=== PATIENT | male | born 1975 | race Caucasian/White ===

== ENCOUNTER → 2017-07-10 | Outpatient (CLI) | payer BC ==
[~2017-07-10] MED LIST: heartburn med
[2017-07-10 11:18] LABS: ALBUMIN 3.8 gm/dl (3.4-5.0); ALT/SGPT 81 U/L (12-78); AST/SGOT 39 U/L (15-37); BLOOD UREA NITROGEN 15 mg/dl (7-18); CALCIUM 8.7 mg/dl (8.5-10.1); CARBON DIOXIDE 26 mmol/L (21-32); CREATININE 1.12 mg/dl (0.60-1.40); GLUCOSE 111 mg/dl (70-99); HEMOGLOBIN A1C 5.3 % (4.5-5.6); POTASSIUM 3.9 mmol/L (3.5-5.1); SODIUM 136 mmol/L (136-145)
[2017-07-10 11:20] LABS: ALKALINE PHOSPHATASE 57 U/L (45-117); CHOLESTEROL 281 mg/dl (0-200); LDL CHOLESTEROL (DIRECT) 146 mg/dl; TOTAL PROTEIN 7.4 gm/dl (6.4-8.2)
== END | disposition home or self-care (01) ==
LOC: C.LABBC 08:19
PROVIDERS: ATTEND General Practice
DX: I10 Essential (primary) hypertension (principal); E78.2 Mixed hyperlipidemia; R73.01 Impaired fasting glucose; R79.89 Other specified abnormal findings of blood chemistry

== ENCOUNTER 2019-03-20 02:03 | Inpatient (IN) ==
[2019-03-20 02:43] LABS: Appearance Urine Clear (Clear); Bacteria Urine Automated Negative (Negative); Bilirubin Urine Negative (Negative); Blood Urine Trace (Negative); Color Urine Yellow; Glucose Urine UA Negative (Negative); Ketones Urine 2+ (Negative); Leukocyte Esterase Urine Negative (Negative); Nitrite Urine Negative (Negative); Protein Urine 2+ (Negative); RBC Urine Automated 0-4 /hpf (0-4); Specific Gravity Urine 1.027 (1.000-1.030); Urobilinogen Urine Negative (Negative); WBC Urine Automated 0 /hpf (0-5); pH Urine 5.5 (4.5-7.5)
[2019-03-20 02:55] LABS: Basophils # (auto) 0.07 K/uL (0-0.2); Basophils % (auto) 0.9 %; Eosinophils # (auto) 0.12 K/uL (0-0.5); Eosinophils % (auto) 1.5 %; Hemoglobin 16.1 g/dL (14.0-18.0); Immature Granulocytes # (auto) 0.02 K/uL (0.00-0.02); Immature Granulocytes % (auto) 0.3 %; Lymphocytes # (auto) 3.75 K/uL (1.2-3.4); Lymphocytes % (auto) 48.3 %; Mean Corpuscular Hemoglobin 32.3 pg (25-34); Mean Corpuscular Volume 92.2 fL (80-100); Mean Platelet Volume 9.8 fL (7.4-10.4); Monocytes # (auto) 0.54 K/uL (0.11-0.59); Neutrophils # (auto) 3.26 K/uL (1.4-6.5); Platelet Count 174 K/uL (130-400); RDW Coefficient of Variation 12.9 % (11.5-14.5); RDW Standard Deviation 43.2 fL (36.4-46.3); Red Blood Count 4.99 M/uL (4.7-6.1); White Blood Count 7.76 K/uL (4.8-10.8)
[2019-03-20 03:04] LABS: Amphetamines+Metham, Urine Neg (Neg); Barbiturates, Urine Neg (Neg); Benzodiazepine, Urine Pos (Neg); Cocaine, Urine Neg (Neg); MDMA (Ecstacy), Urine Neg (Neg); Methadone, Urine Neg (Neg); Opiate, Urine Neg (Neg); Phencyclidine, Urine Neg (Neg)
[2019-03-20 03:20] LABS: Albumin Level 3.9 gm/dl (3.4-5.0); BUN Creatinine Ratio 15.2 (10-20); Calcium 7.8 mg/dl (8.5-10.1); Creatinine Clr Calc Pharmacy 84.3 ml/min; Est GFR (African American) 91.8; Est GFR (Non-African American) 79.2
[2019-03-20 03:25] LABS: Bilirubin,Total 0.4 mg/dl (0.2-1); Thyroid Stimulating Hormone 0.453 uIu/ml (0.300-4.500); Total Protein 7.9 gm/dl (6.4-8.2)
[2019-03-20 03:43] LABS: Potassium 3.7 mmol/L (3.5-5.1)
[2019-03-20 03:52] LABS: Acetaminophen < 2 ug/ml (10-30); Salicylate 1.8 mg/dl (2.8-20)
--- NOTE | 2019-03-20 07:02 | Emergency Department Note ---
ED Visit Note 0700: sign out from Dr. Hudson. 43 yo M presenting w/ depression & SI, etoh intoxication. await psych eval 1600: Patient was evaluated by psychiatry. Patient is agreeable to voluntary admission for depression and suicidal ideation. Awaiting psychiatric placement. Case signed out to Dr. Hernandez. . : Alcohol intoxication Qualifiers: Complication of substance-induced condition: uncomplicated Qualified Code(s): F10.920 - Alcohol use, unspecified with intoxication, uncomplicated
--- NOTE | 2019-03-20 07:40 | Emergency Department Note ---
Entered by Yazmin Mauro acting as a scribe for ED Provider Note Name: Quincy Wan Age: 43 M Arrives Via: Police Informant: Patient CC: Depression HPI: The patient is a 43 year old male presenting to the Emergency Department complaining of worsening depression starting 1 day ago. The patient reports that he is normally depressed everyday but that it his depression has worsened over the past day. He states that he called his friend who is a state field service consultant [employer]AD CY[employer]CH[employer]IST and said that he wanted to hurt himself by cutting his wrists. He explains that he has tried to hurt himself before but that he has never been admitted to a psychiatric inpatient unit. He notes that he sometimes experiences anxiety related chest pain. He adds that he was drinking alcohol [employer] but doesnt remember how much alcohol he consumed. 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 He states that he currently isnt in any pain. He denies shortness of breath. ROS: See above HPI for pertinent positives & negatives. A total of 10 systems reviewed and were otherwise negative. Past Medical History: Depression, Anxiety Past Surgical History: No pertinent past surgical history. Family History: No pertinent family history. Social History: Never a smoker. Feels safe at home. Home Medications: "Heart burn medication" Allergies No known allergies. Physical: Vitals: BP: 143/99, Pulse: 131, Respirations: 16, Temperature: 98.1F, O2 Saturation: 94, Delivery: Room air. Exam: GENERAL: Patient is intoxicated appearing and in no acute distress. Slowed speech. EYES: No scleral icterus, unremarkable pupils. ENT: Mucous membranes moist, no nasal congestion. NECK: No masses appreciated, no meningismus, trachea is midline. RESPIRATORY: No dyspnea. Clear to auscultation and equal bilaterally. No wheeze, no rhonchi. CARDIOVASCULAR: Tachycardic rate and regular rhythm. No murmurs, rubs, gallops appreciated. GASTROINTESTINAL: Abdomen soft, non-tender, no peritonitis. Bowel sounds positive. No masses appreciated. BACK: No midline tenderness, no CVA tenderness EXTREMITIES: Normal motion all extremities, no cyanosis, no edema. NEUROLOGIC: Alert and oriented, no acute motor or sensory deficits, no focal weakness, cranial nerves grossly intact. PSYCH: Admits depression, anxiety and SI with plan. SKIN: No rash, no jaundice, no diaphoresis. ED Course: 0226: Prior Medical Record, Triage/Nursing Notes, Medications, Allergies reviewed by Me. The patient was evaluated in room A7, and a complete history and physical examination were performed. 729: I discussed the patient's case with Dr. Fabian CAZARES. He will evaluated the patient for further management. Vital Signs: reviewed and remarkable for tachycarida Labs: Reviewed and remarkable for normal psych labs other than elevated ETOH Blood pressure: Normal. No Referral necessary Disposition: Signed out to Dr Peralta Differentials: Differential diagnoses considered include mood disorder, infection, hypoglycemia, electrolyte abnormalities, cardiac sources, intracerebral event, toxicologic, neurologic, as well as others. Medical Decision Makin yr old male with worsening depression and suicidal ideation. He is very intoxicated and difficult to get story from. Medically clear other than intoxication. Signed out to Dr Peralta pending sobering and mental health evaluation. Impression: Suicidal ideation, Alcohol intoxication The scribe's documentation has been prepared under my direction and personally reviewed by me in its entirety. I confirm that the note above accurately reflects all work, treatment, procedures, and medical decision making performed by me. Florentin Hudson MD Impression & Plan Suicidal ideation, Alcohol intoxication Past Med/Surg History Medical History Anxiety Depression Surgical History No pertinent past surgical history Family History Other No pertinent family history Social History Feels Safe at Home: Yes Smoking Status: Never smoker Results & Data Vital Signs Vital Signs - 24 hr 03/20/19 02:08 03/20/19 04:10 Temperature 36.7 C Temperature Source Oral Sepsis Recent Fever Within 48 Hours No Sepsis Action Taken by Nursing No Action Required Pulse Rate 131 H Pulse Rate [Right Finger] 122 H Respiratory Rate 16 Respiratory Effort / Characteristics Non-Labored Spontaneous Respiratory Depth Normal Blood Pressure 143/99 H Blood Pressure [Left Arm] 104/66 Blood Pressure Mean 113 Blood Pressure Mean [Left Arm] 78 Pulse Oximetry 94 93 Oxygen Delivery Method Room Air Room Air Home Medications Current Medication List: was personally reviewed by me Laboratory Data Attestation: I reviewed the patient's lab results. Result diagrams: 03/20/19 02:44 03/20/19 02:44 Lab Results 03/20/19 03/20/19 03/20/19 Range/Units 02:15 02:15 02:44 WBC 7.76 (4.8-10.8) K/uL RBC 4.99 (4.7-6.1) M/uL Hgb 16.1 (14.0-18.0) g/dL Hct 46.0 (42-52) % MCV 92.2 (80-100) fL MCH 32.3 (25-34) pg MCHC 35.0 (32-36) g/dL RDW Std Deviation 43.2 (36.4-46.3) fL RDW Coeff of Alfonso 12.9 (11.5-14.5) % Plt Count 174 (130-400) K/uL MPV 9.8 (7.4-10.4) fL Immature Gran % (Auto) 0.3 % Neut % (Auto) 42.0 % Lymph % (Auto) 48.3 % [place] % (Auto) 7.0 % Eos % (Auto) 1.5 % Baso % (Auto) 0.9 % Immature Gran # (Auto) 0.02 (0.00-0.02) K/uL Neut # (Auto) 3.26 (1.4-6.5) K/uL Lymph # (Auto) 3.75 H (1.2-3.4) K/uL [place] # (Auto) 0.54 (0.11-0.59) K/uL Eos # (Auto) 0.12 (0-0.5) K/uL Baso # (Auto) 0.07 (0-0.2) K/uL Sodium (136-145) mmol/L Potassium (3.5-5.1) mmol/L Chloride (98-107) mmol/L Carbon Dioxide (21-32) mmol/L Anion Gap (3-11) BUN (7-18) mg/dl Creatinine (0.6-1.4) mg/dl Est Cr Clr Drug Dosing ml/min Est GFR ( Amer) Est GFR (Non-Af Amer) BUN/Creatinine Ratio (10-20) Glucose (70-99) mg/dl Calcium (8.5-10.1) mg/dl Total Bilirubin (0.2-1) mg/dl AST (15-37) U/L ALT (12-78) U/L Alkaline Phosphatase (45-117) U/L Total Protein (6.4-8.2) gm/dl Albumin (3.4-5.0) gm/dl Globulin (2.5-4.0) gm/dl Albumin/Globulin Ratio (0.9-2) TSH (0.300-4.500) uIu/ml Urine Color Yellow Urine Appearance Clear (Clear) Urine pH 5.5 (4.5-7.5) Ur Specific [place] 1.027 (1.000-1.030) Urine Protein 2+ H (Negative) Urine Glucose (UA) Negative (Negative) Urine Ketones 2+ H (Negative) Urine Blood Trace H (Negative) Urine Nitrite Negative (Negative) Urine Bilirubin Negative (Negative) Urine Urobilinogen Negative (Negative) Ur Leukocyte Esterase Negative (Negative) Urine WBC (Auto) 0 (0-5) /hpf Urine RBC (Auto) 0-4 (0-4) /hpf U Hyaline Cast (Auto) 1-5 (0-5) /lpf U Epithel Cells (Auto) 5-10 H (0-5) /lpf Urine Bacteria (Auto) Negative (Negative) Salicylates (2.8-20) mg/dl Urine Opiates Screen Neg (Neg) Ur Methadone, Qual Neg (Neg) Acetaminophen (10-30) ug/ml Urine Barbiturates Neg (Neg) Ur Phencyclidine (PCP) Neg (Neg) U Amphetamin/Meth Scrn Neg (Neg) MDMA (Ecstasy) Screen Neg (Neg) U Benzodiazepines Scrn Pos H (Neg) Ur Cocaine Metabolite Neg (Neg) U Marijuana (THC) Screen Neg (Neg) Ethyl Alcohol mg/dL (0-3) mg/dl 03/20/19 03/20/19 03/20/19 Range/Units 02:44 02:44 02:44 WBC (4.8-10.8) K/uL RBC (4.7-6.1) M/uL Hgb (14.0-18.0) g/dL Hct (42-52) % MCV (80-100) fL MCH (25-34) pg MCHC (32-36) g/dL RDW Std Deviation (36.4-46.3) fL RDW Coeff of Alfonso (11.5-14.5) % Plt Count (130-400) K/uL MPV (7.4-10.4) fL Immature Gran % (Auto) % Neut % (Auto) % Lymph % (Auto) % [place] % (Auto) % Eos % (Auto) % Baso % (Auto) % Immature Gran # (Auto) (0.00-0.02) K/uL Neut # (Auto) (1.4-6.5) K/uL Lymph # (Auto) (1.2-3.4) K/uL [place] # (Auto) (0.11-0.59) K/uL Eos # (Auto) (0-0.5) K/uL Baso # (Auto) (0-0.2) K/uL Sodium 143 (136-145) mmol/L Potassium 3.7 (3.5-5.1) mmol/L Chloride 106 (98-107) mmol/L Carbon Dioxide 21 (21-32) mmol/L Anion Gap 16.0 H (3-11) BUN 17 (7-18) mg/dl Creatinine 1.13 (0.6-1.4) mg/dl Est Cr Clr Drug Dosing 84.3 ml/min Est GFR ( Amer) 91.8 Est GFR (Non-Af Amer) 79.2 BUN/Creatinine Ratio 15.2 (10-20) Glucose 153 H (70-99) mg/dl Calcium 7.8 L (8.5-10.1) mg/dl Total Bilirubin 0.4 (0.2-1) mg/dl AST 74 H (15-37) U/L ALT 124 H (12-78) U/L Alkaline Phosphatase 71 (45-117) U/L Total Protein 7.9 (6.4-8.2) gm/dl Albumin 3.9 (3.4-5.0) gm/dl Globulin 4.0 (2.5-4.0) gm/dl Albumin/Globulin Ratio 1.0 (0.9-2) TSH 0.453 (0.300-4.500) uIu/ml Urine Color Urine Appearance (Clear) Urine pH (4.5-7.5) Ur Specific [place] (1.000-1.030) Urine Protein (Negative) Urine Glucose (UA) (Negative) Urine Ketones (Negative) Urine Blood (Negative) Urine Nitrite (Negative) Urine Bilirubin (Negative) Urine Urobilinogen (Negative) Ur Leukocyte Esterase (Negative) Urine WBC (Auto) (0-5) /hpf Urine RBC (Auto) (0-4) /hpf U Hyaline Cast (Auto) (0-5) /lpf U Epithel Cells (Auto) (0-5) /lpf Urine Bacteria (Auto) (Negative) Salicylates 1.8 L (2.8-20) mg/dl Urine Opiates Screen (Neg) Ur Methadone, Qual (Neg) Acetaminophen < 2 L (10-30) ug/ml Urine Barbiturates (Neg) Ur Phencyclidine (PCP) (Neg) U Amphetamin/Meth Scrn (Neg) MDMA (Ecstasy) Screen (Neg) U Benzodiazepines Scrn (Neg) Ur Cocaine Metabolite (Neg) U Marijuana (THC) Screen (Neg) Ethyl Alcohol mg/dL 369.0 H (0-3) mg/dl Blood Pressure Blood Pressure Findings: Elevated blood pressure Blood Pressure Disposition: further management by hospitalist (Dr. Peralta [facility]) Discharge Plan Visit Data Chief Complaint: Mental Health Evaluation Stated Complaint: MENTAL HEALTH EVAL,FEELS LIKE HARMING HIMSELF ED Provider: Fransico Peralta Discharge Problem: Suicidal ideation, Alcohol intoxication Patient Disposition: Still a Patient Forms Stand Alone Forms: My [facility] Prescriptions Prescriptions: No Action heartburn med Qty: 0 RF: 0 Referrals Referrals: Bobby Garcia M.D. [Primary Care Provider] - Discharge Problem: Alcohol intoxication Qualifiers: Complication of substance-induced condition: uncomplicated Qualified Code(s): F10.920 - Alcohol use, unspecified with intoxication, uncomplicated The scribe's documentation has been prepared under my direction and personally reviewed by me in its entirety. I confirm that the note above accurately reflects all work, treatment, procedures, and medical decision making performed by me.
[2019-03-20] MEDS ORDERED: LORazepam 1 MG TAB SL STA (17:11)
--- NOTE | 2019-03-20 17:48 | Emergency Department Note ---
ED Visit Note This patient was signed out to me by Dr. Peralta pending mental health evaluation and placement into a psychiatric facility. The patient was accepted by [facility] for inpatient psychiatric care. He became very anxious and was given Ativan 1 g sublingually. He was transferred to the psychiatric unit in good condition. He did sign a 201. . : Alcohol intoxication Qualifiers: Complication of substance-induced condition: uncomplicated Qualified Code(s): F10.920 - Alcohol use, unspecified with intoxication, uncomplicated
[2019-03-20] MEDS ORDERED: ACETAMINOPHEN 325 MG TAB PO PRN (18:15)
[2019-03-20] MEDS ORDERED: MAGNESIUM HYDROXIDE SUSP 30 ML UDC PO PRN (18:15)
[2019-03-20] MEDS ORDERED: BISMUTH SUBSALICYLATE PER ML OMNICELL CHARGE PO PRN (18:15)
[2019-03-20] MEDS ORDERED: GABAPENTIN 1200MG ALCOHOL WITHDRAWAL LOAD PO STA (18:15)
[2019-03-20] MEDS ORDERED: SODIUM CHLORIDE 0.65% NA SOLN 45 ML (OCEAN) PRN (18:15)
[2019-03-20] MEDS ORDERED: ALUMINUM/MAGNESIUM SUSP 30 ML UDC PO PRN (18:15)
[2019-03-20] MEDS ORDERED: LORazepam 1 MG TAB PO PRN ×2 (18:15→19:03)
[2019-03-20] MEDS ORDERED: NON-FORMULARY MEDICATION (Bisoprolol Fumarate 5 MG) PO SCH (18:30)
[2019-03-20] MEDS ORDERED: GABAPENTIN 600 MG TAB PO SCH (18:45)
[2019-03-20] MEDS: BISOPROLOL FUMARATE PO SCH (21:26)
[2019-03-21] MEDS: GABAPENTIN 600 MG TAB PO SCH ×4 (00:54→22:10)
[2019-03-21] MEDS: THIAMINE HCL 100 MG TAB PO SCH (08:42)
[2019-03-21] MEDS: FOLIC ACID 1 MG TAB PO SCH (08:42)
[2019-03-21] MEDS: BISOPROLOL FUMARATE PO SCH (08:42)
--- NOTE | 2019-03-21 10:26 | History & Physical ---
Date of Service March 21, 2019 Impression / Recommendations Impression 43-year-old male with a history of alcohol use disorder, recurrent depression, generalized anxiety, and OCD symptoms who presents with suicidal ideation and thoughts to cut his wrist, which he disclosed to a friend who is a [place] [employer] police officer, who arranged for him to be brought to the ER, where he was voluntarily admitted. He has had brief treatment with medications from his PCP in the past, with 2 trials of venlafaxine XR, which he does not wish to retrial due to discontinuation symptoms when coming off of it. He has never had any treatment for his alcoholism, and has never been in therapy, but is willing to seek treatment now. He is on the [facility] protocol for alcohol withdrawal, and is willing to start a trial of an SSRI. He will need a family meeting with his and referral for outpatient treatment. Inpatient treatment is currently indicated due to severity of symptoms and risk for suicide if discharged prematurely. (1) Suicidal ideation: 03/21 -continue inpatient treatment, every 15 minute checks for safety. -Attend groups and therapy, work on healthy coping skills and discharge safety plan. -Family meeting with . Present on Admission?: Yes (2) Depression: 03/21 -reviewed diagnoses and recommended treatment, including medications, therapy, and substance abuse treatment. -Patient reports 2 trials of venlafaxine XR in the past, and although it seemed effective the first time, did not work as well the second time. He does not wish to retrial it due to discontinuation symptoms when tapering off of it. Instead, discussed a trial of an SSRI, which he has never had before. Specifically reviewed sertraline, including risks, benefits, and side effects. He was provided with an up-to-date patient handout on the medication, and agreed to. Start 25 mg daily, titrate to effective dose. Depression Type: major depressive disorder Major depression recurrence: recurrent Active/Remission status: currently active Major depression episode severity: severe Psychotic features: without psychotic features Qualified Code(s): F33.2 - Major depressive disorder, recurrent severe without psychotic features Present on Admission?: Yes (3) Anxiety: 03/21 -symptoms of generalized anxiety disorder and OCD. Start SSRI trial as above, work on coping strategies, and refer for outpatient therapy and psychiatric care. Present on Admission?: Yes (4) Alcohol abuse: 03/21 -continue gabapentin taper and lorazepam as needed AWSS protocol. -Discussed use of naltrexone for cravings and provided patient with an up-to-date patient handout. LFTs are currently elevated, so will postpone initiating medication until they have normalized. -Discussed different levels of treatment including inpatient rehab, IOP, and therapy with a substance abuse counselor. Continue to explore options and refer for treatment as indicated. -Brief intervention was offered and accepted Intervention was greater than 5 min in length. Brief interventions include: 1. Assess Readiness to Quit, 2. Advise: Help Patient to Reduce or Abstain from Alcohol, 3. Agree: Set Specific, Feasible Goals, 4. Assist: Anticipate barriers, Problem-Solving Solutions. Social work to 5. Arrange: Referrals to appropriate treatment. Summary of intervention: The patient is in contemplation stage with regards to transtheoretical model of change. The patient is advised to decrease alcohol consumption due to depressant effects and risk of interactions with prescription medications. The patient agreed to consider medication, except referral for outpatient treatment, with goal of abstinence. He will be provided with recovery materials to continue to education self on how to cope with their condition without drinking. Present on Admission?: Yes Inventory Assets Strengths: Supportive family, employed Needs: Substance abuse treatment/sobriety, treatment for depression and anxiety, grief processing Risk Factors Assessment Male: Yes : Yes Do You Have Access To A Gun?: No Health Problems: Yes Mental Health Diagnoses: Yes Substance Use Disorders: Yes Previous Attempt: Yes Previous Attempt; Highly Lethal: No Family History of Suicide: Yes Previous Psychiatric Hospitalization: No Hopelessness: No Smoker: No Protective Factors Assessment : Yes Responsible for Young Children: Yes Employed: Yes ([employer]) Stable Relationships: Yes Supportive Family: Yes Good Rapport with Provider: Yes Psychiatric History Identifying Data DAVIDE NINO is a 43-year-old M who currently lives in [place] with his and children, has a history of alcohol dependence, and was admitted on 03/20/19 18:11 on a 201 voluntary commitment for depression and suicidal ideation. Chief Complaint "I was, well, I drink heavily, and on Thursday night I just got a thought in my head that I was going to take a knife and slash my wrist". History of Present Illness Patient presented to the emergency room at 0200 on 03/20/2019 after he texted a friend of his who is a [place] [employer] police officer stating "I think I need help. I'm thinking about taking a knife to my wrist." He was intoxicated with a blood alcohol level of 369, and was observed until clinically sober and able to participate in the assessment. He reported suicidal thoughts to slit his wrists. He said he struggled with depression since he was a teenager, and had been prescribed medications in the past by his PCP, Dr. Bobby Garcia, and is currently prescribed diazepam and trazodone as needed. He reported low mood, decreased appetite, poor sleep (3-4 hours at a time), social withdrawal, and monthly panic attacks with trembling, shortness of breath, chest pain, tearfulness, and dropping to the floor. He denied specific stressors, but stated that his job, life in general, and his depression were stressful. His was contacted and was in favor of inpatient treatment. He reported daily alcohol use, approximately 8 drinks daily, last on 03/19/2019 prior to presenting to the ER. He denied any history of withdrawal, but after being admitted to the unit, was hypertensive, tachycardic, and scored a 9 on the AWSS. He received Lorazepam 1 mg and was started on the gabapentin taper, and continued on his home antihypertensive. On my assessment, he was seen with Etelvina Ramsey MS2, and Dandre Thacker MS2. He reports he drinks heavily on a daily basis, and on Thursday night "got a thought in my head that I was going to take a knife and slash my wrist." He says the thoughts had been "building up" for about 8 hours, prior to drinking. He reports episodes of suicidal thoughts that have occurred multiple times throughout his life, sometimes are "fleeting" and sometimes more longstanding. He does not keep guns in his home because of this. He has had various plans in the past, and actually had a suicide attempt in college where he "drank a bunch of NyQuil," but didn't seek medical treatment. He denies acute stressors or triggers, but reports long standing depression treated with venlafaxine XR in 2005 and again in 2012, which was prescribed by his PCP. He states he would never take it again as "it was horrible coming off it." He had "brain zaps and felt like I was having a heart attack." Mood has been "pretty bad" for the past year and a half, doesn't think he ever recovered from his father dying 2 years ago. He states this "changed the dynamic of my family, my mother doesn't call me and it feels hurtful, and I don't talk to my sister." He is not sure why things changed after his father . Reports irritability, "I'm short with people," and chronic work stress. Mood has been worsening for the past 3 months, feels "overwhelmed with everything," unable to keep up with his obligations between work and family, and "no time to decompress." His drinking has increased over time, used to drink a 6 pack a night, and increased to 8-12 beers a night. Has been drinking daily for the past 3 years, and was able to abstain for a week in 07/2018 without withdrawal symptoms. He has tried to stop on his own, "I knew I was doing damage to myself." Admits drinking has caused problems (hangovers, difficulty functioning the next day, relationship problems w/ who wants him to get treatment). He says he disclosed it his PCP as well, and they were following his LFTs. He endorses anxiety with panic attacks weekly that occur without trigger, consist of tearfulness, heart racing, shaking, shallow breathing, and anxiety that last a maximum of 20 minutes, usually 3-0 minutes. States he hasn't found anything that helps him to get through them, although was taking Valium 1-2 times a week for panic or sleep. Reports excessive worry about "anything," feeling on edge, difficulty controlling the worry, with increased muscle tension/HAs and sleep interference. Reports episodes of elevated mood where "I can accomplish anything, nothing can go wrong," lasting a maximum of two days. He needs less sleep, has racing thoughts, risk taking behavior, or that others have noticed. These episodes occurred since high school, occur 3-4 times a year, and last 1-2 days at most. He reports being "germophobic" since HS, washes his hands excessively (estimates 60-70 times/day), which interferes with his ability to get day to day tasks done. He reports difficulty getting over the of his father, but denies PTSD symptoms. Past Psychiatric History Current Psychiatric Diagnosis: MDD Outpatient Services: PCP prescribed medications -Dr. Garcia, in [facility]. Has never had substance abuse treatment, therapy, or psychiatric care. Has attended some AA meetings, "it's definitely not for me," and the "higher power" step "doesn't really jive with me." Previous Psych Admissions: Denies Do You Have Access To A Gun?: No History of Previous Suicide Attempt: Yes Describe Attempts in the Past: while in 20s drank NyQuil in suicide attempt; did not seek treatment Past Medication Trials: Venlafaxine XR No SSRI trials Past Head Trauma/Neuro History PCP is Dr. Bobby Garcia in [place] Allergies Allergy/AdvReac Type Severity Reaction Status Date / Time No Known Allergies Allergy Verified 03/20/19 15:16 Home Medications Home Medications Medication Instructions Recorded Confirmed Type bisoprolol fumarate 5 mg PO DAILY 03/20/19 03/20/19 History diazepam 5 mg PO HS PRN 03/20/19 03/20/19 History trazodone 50 mg PO HS PRN 03/20/19 03/20/19 History Family History Family History of: Other Mood Disorders, Psychosis/ThoughtDisorder (cousin with schizophrenia), Alcoholism/Drug Abuse (multiple cousins (one who drank himself to ) and maternal grandfather) and Suicide Completion (cousin) Family Mental Health History Comment: Notes family is not very open about mental health issues so does not know details of diagnoses Alcohol History Hx of Alcohol Use Over the Past 12 Months: Yes (beer/whiskey, 8 drinks/day, daily, 03/19/19) AUDIT Total Score: 11 Drinking daily for the past 3 years, initially 6 pack/day, and has increased to 8-12 beers/day. No h/o treatment or withdrawal, but has interfered with life/ability to function. Smoking Use Have You Smoked or Used Tobacco Products in the Last 30 Days: No Smoking Status: Never smoker Substance History Hx of Prescription Med Misuse Over the Past 12 Months: No Hx of Over the Counter Med Misuse Over the Past 12 Months: No Hx of Inhalent Misuse Over the Past 12 Months: No Hx of Organic Substance Use Over the Past 12 Months: No Hx of Illegal Substances/Street Drug Use Over Past 12 Months: No Problems as a Result of Past Substance Use: Sustained Bodily Harm (liver damage) and Other ( concerned about him) Personal History Living Arrangements: Home Living Arrangements Comments: in [place] with and 2 children Childhood: Grew up in [place], raised by both parents. 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) Marital Status: Number Of Children: 2 daughters - ages 7 and 10 Beliefs That Will Affect Care: None Current Legal Problems: No Hx Traumatic Life Events: Yes Psychological Trauma History Comment: father's and being estranged from remaining family Patient History Medical History Anxiety Depression Surgical History No pertinent past surgical history Family History Other No pertinent family history Social History Preferred Language: Maltese Communication Ability: Effective Beliefs That Will Affect Care: None Feels Safe at Home: Yes Smoking Status: Never smoker Review of Systems Review of Systems: All systems reviewed & are unremarkable except as noted in HPI & below Physical Exam Psychiatric: Orientation: alert, oriented x 3 and cooperative Apperance: appropriately dressed, appropriately groomed and appeared stated age Eye Contact: + fair eye contact Motor Behavior: steady gait and station and no abnormal motor movements Speech: normal rate/rhythm/volume of speech Affect: + anxious affect Mood: + depressed mood and + anxious mood Thought Process: goal directed thought process and linear/logical thought process Thought Content: reality based without delusions Suicidal Thoughts: + reports suicidal thoughts Homicidal Thoughts: denies homicidal thoughts Hallucinations: no auditory hallucinations and no visual hallucinations Cognition: recent memory grossly intact, remote memory grossly intact, attention grossly intact and language grossly intact Estimated Intelligence: consistent with education level Insight: + fair insight Judgement: + fair judgement Vital Signs (Past 24 Hours): Last Vital Signs Temp 36.3 C L 03/21/19 07:00 Pulse 72 03/21/19 07:01 Resp 20 03/21/19 07:00 BP 142/99 H 03/21/19 07:01 Pulse Ox 96 03/20/19 18:37 Exam Statement: A physical exam was performed in the ER prior to admission to the unit by Dr. Jasmeet Hernandez. I accept that physical as correct/medical clearance for the inpatient physical exam. Results & Data Laboratory Results Laboratory Results - last 24 hr 03/20/19 19:29 Folate 10.49 Current Inpatient Medications Current Inpatient Medications: Current Inpatient Medications Acetaminophen (Tylenol) 650 mg PO Q4H PRN PRN Reason: Headache or Minor Fever Stop: 04/19/19 18:14 Al Hydrox/Mg Hydrox/Simethicone (Maalox) 30 ml PO Q4H PRN PRN Reason: GI Upset Stop: 04/19/19 18:14 Bismuth Subsalicylate (Kaopectate) 15 ml PO PRN PRN PRN Reason: Loose Stool Stop: 04/19/19 18:14 Bisoprolol Fumarate (Bisoprolol Fumarate) 1 ea PO DAILY MARY Stop: 04/20/19 08:59 Last Admin: 03/21/19 08:42 Dose: 1 ea Documented by: Folic Acid (Folvite) 1 mg PO QAM MARY Stop: 04/20/19 08:59 Last Admin: 03/21/19 08:42 Dose: 1 mg Documented by: Gabapentin (Neurontin) 600 mg PO Q12H MARY Stop: 03/23/19 06:46 Gabapentin (Neurontin) 600 mg PO Q8H MARY Stop: 03/22/19 06:46 Gabapentin (Neurontin) 600 mg PO Q24H MARY Stop: 03/24/19 06:46 Hydroxyzine HCl (Vistaril) 25 mg PO Q4H PRN PRN Reason: Anxiety Stop: 04/19/19 18:14 Hydroxyzine HCl (Vistaril) 50 mg PO HSZ PRN PRN Reason: Insomnia Stop: 04/19/19 18:14 Lorazepam (Ativan) 1 - 3 mg PO UD PRN; Protocol PRN Reason: EtoH Withdrawal AWSS 6-10+ Stop: 04/19/19 19:02 Magnesium Hydroxide (Milk Of Magnesia) 30 ml PO DAILY PRN PRN Reason: Constipation Stop: 04/19/19 18:14 Sodium Chloride ([place] Nasal) 1 - 2 sprays NA PRN PRN PRN Reason: Nasal Dryness/Congestion Stop: 04/19/19 18:14 Thiamine HCl (Vitamin B-1) 100 mg PO QAM MARY Stop: 04/20/19 08:59 Last Admin: 03/21/19 08:42 Dose: 100 mg Documented by: Trazodone HCl (Desyrel) 50 mg PO HS PRN PRN Reason: Sleep Stop: 04/19/19 18:18 CPT Code CPT Code Initial Hospital Care: [id number]
[2019-03-21] MEDS ORDERED: SERTRALINE HCL 50 MG TABLET PO ONE (11:45)
[2019-03-21] MEDS: TRAZODONE HCL 50 MG TAB PO PRN (22:10)
[2019-03-22] MEDS: GABAPENTIN 600 MG TAB PO SCH ×2 (06:23→18:56)
[2019-03-22] MEDS: FOLIC ACID 1 MG TAB PO SCH (07:58)
[2019-03-22] MEDS: BISOPROLOL FUMARATE PO SCH (07:58)
[2019-03-22] MEDS: THIAMINE HCL 100 MG TAB PO SCH (07:58)
[2019-03-22] MEDS: SERTRALINE HCL 50 MG TABLET PO SCH (07:59)
--- NOTE | 2019-03-22 10:22 | Psychiatric Progress Note ---
Date of Service March 22, 2019 Impression / Recommendations Impression 43-year-old male with a history of alcohol use disorder, recurrent depression, generalized anxiety, and OCD symptoms who presents with suicidal ideation and thoughts to cut his wrist, which he disclosed to a friend who is a consular officer, who arranged for him to be brought to the ER, where he was voluntarily admitted. He has had brief treatment with medications from his PCP in the past, with 2 trials of venlafaxine XR, which he does not wish to retrial due to discontinuation symptoms when coming off of it. He has never had any treatment for his alcoholism, and has never been in therapy, but is willing to seek treatment now. He is on the [facility] protocol for alcohol withdrawal, and is willing to start a trial of an SSRI. He will need a family meeting with his and referral for outpatient treatment. Inpatient treatment is currently indicated due to severity of symptoms and risk for suicide if discharged prematurely. (1) Suicidal ideation: 03/21 -continue inpatient treatment, every 15 minute checks for safety. -Attend groups and therapy, work on healthy coping skills and discharge safety plan. -Family meeting with . (2) Depression: 03/21 -reviewed diagnoses and recommended treatment, including medications, therapy, and substance abuse treatment. -Patient reports 2 trials of venlafaxine XR in the past, and although it seemed effective the first time, did not work as well the second time. He does not wish to retrial it due to discontinuation symptoms when tapering off of it. Instead, discussed a trial of an SSRI, which he has never had before. Specifically reviewed sertraline, including risks, benefits, and side effects. He was provided with an up-to-date patient handout on the medication, and agreed to. Start 25 mg daily, titrate to effective dose. (3) Anxiety: 03/21 -symptoms of generalized anxiety disorder and OCD. Start SSRI trial as above, work on coping strategies, and refer for outpatient therapy and psychiatric care. (4) Alcohol abuse: 03/21 -continue gabapentin taper and lorazepam as needed [facility] protocol. -Discussed use of naltrexone for cravings and provided patient with an up-to-date patient handout. LFTs are currently elevated, so will postpone initiating medication until they have normalized. -Discussed different levels of treatment including inpatient rehab, IOP, and therapy with a substance abuse counselor. Continue to explore options and refer for treatment as indicated. -Brief intervention was offered and accepted Intervention was greater than 5 min in length. Brief interventions include: 1. Assess Readiness to Quit, 2. Advise: Help Patient to Reduce or Abstain from Alcohol, 3. Agree: Set Specific, Feasible Goals, 4. Assist: Anticipate barriers, Problem-Solving Solutions. Social work to 5. Arrange: Referrals to appropriate treatment. Summary of intervention: The patient is in contemplation stage with regards to transtheoretical model of change. The patient is advised to decrease alcohol consumption due to depressant effects and risk of interactions with prescription medications. The patient agreed to consider medication, except referral for outpatient treatment, with goal of abstinence. He will be provided with recovery materials to continue to education self on how to cope with their condition without drinking. Inventory Assets Strengths: Supportive family, employed Needs: Substance abuse treatment/sobriety, treatment for depression and anxiety, grief processing Risk Factors Assessment Male: Yes : Yes Do You Have Access To A Gun?: No Health Problems: Yes Mental Health Diagnoses: Yes Substance Use Disorders: Yes Previous Attempt: Yes Previous Attempt; Highly Lethal: No Family History of Suicide: Yes Previous Psychiatric Hospitalization: No Hopelessness: No Smoker: No Protective Factors Assessment : Yes Responsible for Young Children: Yes Employed: Yes ([employer]) Stable Relationships: Yes Supportive Family: Yes Good Rapport with Provider: Yes Interval History Identifying Information DAVIDE NINO is a 43-year-old M who currently lives in [place] with his and children, has a history of alcohol dependence, and was admitted on 0 03/20/19 18:11 on a 201 voluntary commitment for depression and suicidal ideation. Chief Complaint "[]". Review of Systems Sleep Information Total Hours of Sleep: 5 Sleep Comments: pt appeared to be asleep @0100 and thereafter. pt on q-15 minute checks Meal Information Percent Meal Consumed - Breakfast: 100 Percent Meal Consumed - Lunch: 100 Percent Meal Consumed - Dinner: 100 Nutrition Comment: pt. ate a few bites Subjective Subjective Patient was seen & assessed and interval progress reviewed with nursing and social work. Staff report he scored 35 on the AWSS yesterday, and has not triggered Lorazepam since 03/20/2019 (received 2 mg that day). He is eating well, performing ADLs independently, and has been engaged and cooperative with assessments. His visited last evening, and he has a family meeting with her today. He is attending and participating in groups and therapy, and interacting appropriately with staff and peers. On my assessment, he was seen LISANDRO Sheehan. He reports Physical Exam Vital Signs (Past 24 Hours) Last Vital Signs Temp 36.5 C 03/22/19 06:54 Pulse 62 03/22/19 06:55 Resp 18 03/22/19 06:54 BP 138/92 03/22/19 06:55 Pulse Ox 96 03/20/19 18:37 Results & Data Current Inpatient Medications Current Inpatient Medications: Current Inpatient Medications Acetaminophen (Tylenol) 650 mg PO Q4H PRN PRN Reason: Headache or Minor Fever Stop: 04/19/19 18:14 Al Hydrox/Mg Hydrox/Simethicone (Maalox) 30 ml PO Q4H PRN PRN Reason: GI Upset Stop: 04/19/19 18:14 Bismuth Subsalicylate (Kaopectate) 15 ml PO PRN PRN PRN Reason: Loose Stool Stop: 04/19/19 18:14 Bisoprolol Fumarate (Bisoprolol Fumarate) 1 ea PO DAILY MARY Stop: 04/20/19 08:59 Last Admin: 03/22/19 07:58 Dose: 1 ea Documented by: Folic Acid (Folvite) 1 mg PO QAM MARY Stop: 04/20/19 08:59 Last Admin: 03/22/19 07:58 Dose: 1 mg Documented by: Gabapentin (Neurontin) 600 mg PO Q12H MARY Stop: 03/23/19 06:46 Gabapentin (Neurontin) 600 mg PO Q24H MARY Stop: 03/24/19 06:46 Hydroxyzine HCl (Vistaril) 25 mg PO Q4H PRN PRN Reason: Anxiety Stop: 04/19/19 18:14 Hydroxyzine HCl (Vistaril) 50 mg PO HSZ PRN PRN Reason: Insomnia Stop: 04/19/19 18:14 Lorazepam (Ativan) 1 - 3 mg PO UD PRN; Protocol PRN Reason: EtoH Withdrawal AWSS 6-10+ Stop: 04/19/19 19:02 Magnesium Hydroxide (Milk Of Magnesia) 30 ml PO DAILY PRN PRN Reason: Constipation Stop: 04/19/19 18:14 Sertraline HCl (Zoloft) 50 mg PO QAM MARY Stop: 04/21/19 08:59 Last Admin: 03/22/19 07:59 Dose: 50 mg Documented by: Sodium Chloride ([place] Nasal) 1 - 2 sprays NA PRN PRN PRN Reason: Nasal Dryness/Congestion Stop: 04/19/19 18:14 Thiamine HCl (Vitamin B-1) 100 mg PO QAM MARY Stop: 04/20/19 08:59 Last Admin: 03/22/19 07:58 Dose: 100 mg Documented by: Trazodone HCl (Desyrel) 50 mg PO HS PRN PRN Reason: Sleep Stop: 04/19/19 18:18 Last Admin: 03/21/19 22:10 Dose: 50 mg Documented by: Mental Health & Subst Abuse Tx Therapist Name of Therapist: Denies Research Chemical Engineer Name of Research Chemical Engineer: Denies Post Discharge Appointments Primary Care Physician Name Of Family Doctor: [facility] - Dr. Garcia Primary Care Provider Appointment Comment: [address], [place] [address] Contact Information Discharge Discharge Address: [facility] [address], [facility] [address] CPT Code CPT Code [id number] (1) Depression Depression Type: major depressive disorder Major depression recurrence: recurrent Active/Remission status: currently active Major depression episode severity: severe Psychotic features: without psychotic features Qualified Code(s): F33.2 - Major depressive disorder, recurrent severe without psychotic features
--- NOTE | 2019-03-22 14:50 | Psychiatric Progress Note ---
Date of Service March 22, 2019 Impression / Recommendations Impression This 43-year-old man presents with a history of depression, anxiety, and suicidal thoughts within the context of significant alcohol abuse. Although he estimates that he drinks "9-12 beers per day," there is collateral information and more than this. His blood pressure and pulse had been elevated, but the patient does not appear to be experiencing withdrawal symptoms. He has a history of hypertension and so today we will increase his dose of his antihypertensive. He is not tremulous, his respirations are normal, and he is not showing excessive anxiety. Of concern today however is the fact that the melany walker quickly dismissed the idea of the option of disulfiram, either starting now or subsequent to discharge. His explanation is a fear that he might "accidentally" consume alcohol, such as in a dessert. It was explained to him that as long as he is careful not to consume alcohol that has not been "cooked off" he would be at very low risk for an Antabuse reaction. The patient's reluctance to consider disulfiram may be a function of his tendency to be obsessive, but I am also suspecting that it may be because he does not genuinely expect to stop drinking upon discharge. He has tolerated the addition of sertraline and his dose has been titrated today to 50 mg a day. We are considering adding naltrexone tomorrow, depending on a repeat liver panel this afternoon. He reports that his mood has improved and his anxiety level "better." (1) Suicidal ideation: 03/21 -continue inpatient treatment, every 15 minute checks for safety. -Attend groups and therapy, work on healthy coping skills and discharge safety plan. -Family meeting with . (2) Depression: 03/21 -reviewed diagnoses and recommended treatment, including medications, therapy, and substance abuse treatment. -Patient reports 2 trials of venlafaxine XR in the past, and although it seemed effective the first time, did not work as well the second time. He does not wish to retrial it due to discontinuation symptoms when tapering off of it. Instead, discussed a trial of an SSRI, which he has never had before. Specifically reviewed sertraline, including risks, benefits, and side effects. He was provided with an up-to-date patient handout on the medication, and agreed to. Start 25 mg daily, titrate to effective dose. 03/22 -The patient reports that he has not experienced any noted side effects associated with sertraline 25 mg daily, and so the dose has been increased to sertraline 50 mg daily, beginning tomorrow.. -He reports that his mood has improved to "about a 6 out of 10." (3) Anxiety: 03/21 -symptoms of generalized anxiety disorder and OCD. Start SSRI trial as above, work on coping strategies, and refer for outpatient therapy and psychiatric care. 03/22 -Patient reports that he has not been feeling particularly anxious today. He notes that he has a mild essential tremor, and on observation he has a 6-12 beats per second fine tremor of both hands. He tells us that this is not new. (4) Alcohol abuse: 03/21 -continue gabapentin taper and lorazepam as needed AWSS protocol. -Discussed use of naltrexone for cravings and provided patient with an up-to-date patient handout. LFTs are currently elevated, so will postpone initiating medication until they have normalized. -Discussed different levels of treatment including inpatient rehab, IOP, and therapy with a substance abuse counselor. Continue to explore options and refer for treatment as indicated. -Brief intervention was offered and accepted Intervention was greater than 5 min in length. Brief interventions include: 1. Assess Readiness to Quit, 2. Advise: Help Patie nt to Reduce or Abstain from Alcohol, 3. Agree: Set Specific, Feasible Goals, 4. Assist: Anticipate barriers, Problem-Solving Solutions. Social work to 5. Arrange: Referrals to appropriate treatment. Summary of intervention: The patient is in contemplation stage with regards to transtheoretical model of change. The patient is advised to decrease alcohol consumption due to depressant effects and risk of interactions with prescription medications. The patient agreed to consider medication, except referral for outpatient treatment, with goal of abstinence. He will be provided with recovery materials to continue to education self on how to cope with their condition without drinking. 03/22 -Today, I reviewed with the patient the fact that alcohol is a drug that can cause and worsen depression, and explained that treatment of depression is difficult if not impossible if the patient continues to use alcohol in substantial quantities. The patient indicated understanding. -We focused on the negative consequences associated with his use of alcohol. These, in his estimation, includes problems in his marriage, and worsening depression and anxiety. -The patient's blood pressure and pulse remained elevated this morning. Several hours later, I checked his pulse manually and his pulse, in my office, was 64. Nursing rechecked his blood pressure and pulse were rechecked by regina merchant and his pulse was 80, with his blood pressure being 156/95. -He acknowledges that he continues to want to drink, but denies cravings. -We discussed the possibility of adding naltrexone to the patient's medication regimen. We will repeat his liver function studies this afternoon and will consider adding naltrexone depending upon the results. -I spoke with the patient about the possibility of disulfiram as an incentive to not drink, and was concerned with the patient said that he definitely does not want something that might make him sick if he consumes alcohol. When confronted about this, in the face of his reported decision to achieve and maintain sobriety, he mentioned that he might "accidentally" eat a dessert that contains alcohol and have a reaction. When I explained that that would be unlikely provided he uses reasonable caution in making food choices by avoiding uncooked alcohol, he still indicated that he would be reluctant to use it. Accordingly, I am concerned about whether his expressed intent to stop drinking is back to him by a genuine desire. Risk Factors Assessment Male: Yes : Yes Do You Have Access To A Gun?: No Health Problems: Yes Mental Health Diagnoses: Yes Substance Use Disorders: Yes Previous Attempt: Yes Previous Attempt; Highly Lethal: No Family History of Suicide: Yes Previous Psychiatric Hospitalization: No Hopelessness: No Smoker: No Protective Factors Assessment : Yes Responsible for Young Children: Yes Employed: Yes ([employer]) Stable Relationships: Yes Supportive Family: Yes Good Rapport with Provider: Yes Interval History Chief Complaint "Depression". Review of Systems Sleep Information Total Hours of Sleep: 5 Sleep Comments: pt appeared to be asleep @0100 and thereafter. pt on q-15 minute checks Meal Information Percent Meal Consumed - Breakfast: 100 Percent Meal Consumed - Lunch: 100 Percent Meal Consumed - Dinner: 100 Nutrition Comment: pt. ate a few bites Subjective Subjective Patient was seen & assessed and interval progress reviewed with treatment team. I met individually with the patient in order to assess his current mental status, evaluate his response to treatment, address issues and concerns that may arise, and make adjustments in his treatment regimen and coordination with the patient. Initially, the patient focused on symptoms of depression and anxiety. He notes that his depression has lessened and that he is feeling more hopeful. He rates his mood as "6 out of 10" today. He also reports that he is not having thoughts of suicide. Further, the patient reports that he has not been particularly anxious, and his affect is calm and euthymic. However, the patient seemed uncomfortable when asked to discuss his abuse of alcohol. We talked at some length today about the fact that alcohol is a depressant that can cause and worsen depression, and can also greatly complicates efforts to treat depression and anxiety. We discussed strategies for maintaining abstinence. The patient says his longest period of sobriety has been "about a month," and that although he periodically tries to stop drinking he finds that a trigger for him is anxiety or tedium. I pointed out that withdrawal from chemical substances is general the opposite of the intoxication affect, so that while he may feel more calm and relaxed when drinking, if drinking large amounts he may begin to experience withdrawal symptoms within 24 hours of his most recent drink and that he may be experiencing mild alcohol withdrawal, and attributing his feelings to freestanding anxiety. The patient notes that he feels motivated to stop drinking and acknowledges that he has never really tried to get help from others in this regard. We discussed self-help groups such as Alcoholics Anonymous and [employer], and he expressed interest in the latter because it does not have episcopal overtones. He is also interested in naltrexone which he notes may decrease his desire for alcohol. We discussed the possibility of using disulfiram (Antabuse) in an effort to assist him in his expressed desire to abstain from alcohol. His response in this regard may indicate a lack of full commitment to sobriety, or it may be part of his obsessive tendencies. In either case, his response was to say that he would not want to try Antabuse because he would be afraid that he would "accidentally" consume beef Burgundy or a brandied dessert and have a reaction. I pointed out that he is unlikely to have an Antabuse reaction, provided that the alcoholic content of anyhas been cooked out. He would need to avoid dishes where alcohol is added after the dishes been ", such as in some instances Czech trifle. Physical Exam Psychiatric Orientation: alert and oriented x 3 Apperance: appropriately dressed, appropriately groomed and appeared stated age Eye Contact: + fair eye contact Motor Behavior: no abnormal motor movements Speech: normal rate/rhythm/volume of speech Affect: euthymic affect "Better. 6 out of 10." Thought Process: goal directed thought process, linear/logical thought process and clear/coherent thought process Thought Content: reality based without delusions Suicidal Thoughts: denies suicidal thoughts Homicidal Thoughts: denies homicidal thoughts Cognition: recent memory grossly intact, remote memory grossly intact, attention grossly intact and language grossly intact Estimated Intelligence: + above average estimated intelligence Insight: + fair insight Judgement: good judgement Vital Signs (Past 24 Hours) Last Vital Signs Temp 36.6 C 03/22/19 14:12 Pulse 80 03/22/19 14:12 Resp 16 03/22/19 14:12 BP 156/95 H 03/22/19 14:12 Pulse Ox 96 03/20/19 18:37 Results & Data Current Inpatient Medications Current Inpatient Medications: Current Inpatient Medications Acetaminophen (Tylenol) 650 mg PO Q4H PRN PRN Reason: Headache or Minor Fever Stop: 04/19/19 18:14 Al Hydrox/Mg Hydrox/Simethicone (Maalox) 30 ml PO Q4H PRN PRN Reason: GI Upset Stop: 04/19/19 18:14 Bismuth Subsalicylate (Kaopectate) 15 ml PO PRN PRN PRN Reason: Loose Stool Stop: 04/19/19 18:14 Bisoprolol Fumarate (Bisoprolol Fumarate) 1 ea PO DAILY MARY Stop: 04/20/19 08:59 Last Admin: 03/22/19 07:58 Dose: 1 ea Documented by: Folic Acid (Folvite) 1 mg PO QAM MARY Stop: 04/20/19 08:59 Last Admin: 03/22/19 07:58 Dose: 1 mg Documented by: Gabapentin (Neurontin) 600 mg PO Q12H MARY Stop: 03/23/19 06:46 Gabapentin (Neurontin) 600 mg PO Q24H MARY Stop: 03/24/19 06:46 Hydroxyzine HCl (Vistaril) 25 mg PO Q4H PRN PRN Reason: Anxiety Stop: 04/19/19 18:14 Hydroxyzine HCl (Vistaril) 50 mg PO HSZ PRN PRN Reason: Insomnia Stop: 04/19/19 18:14 Lorazepam (Ativan) 1 - 3 mg PO UD PRN; Protocol PRN Reason: EtoH Withdrawal AWSS 6-10+ Stop: 04/19/19 19:02 Magnesium Hydroxide (Milk Of Magnesia) 30 ml PO DAILY PRN PRN Reason: Constipation Stop: 04/19/19 18:14 Sertraline HCl (Zoloft) 50 mg PO QAM MARY Stop: 04/21/19 08:59 Last Admin: 03/22/19 07:59 Dose: 50 mg Documented by: Sodium Chloride ([place] Nasal) 1 - 2 sprays NA PRN PRN PRN Reason: Nasal Dryness/Congestion Stop: 04/19/19 18:14 Thiamine HCl (Vitamin B-1) 100 mg PO QAM MARY Stop: 04/20/19 08:59 Last Admin: 03/22/19 07:58 Dose: 100 mg Documented by: Trazodone HCl (Desyrel) 50 mg PO HS PRN PRN Reason: Sleep Stop: 04/19/19 18:18 Last Admin: 03/21/19 22:10 Dose: 50 mg Documented by: Mental Health & Subst Abuse Tx Therapist Name of Therapist: Denies [facility] Name of [facility]: Denies Post Discharge Appointments Primary Care Physician Name Of Family Doctor: [facility] - Dr. Garcia Primary Care Provider Appointment Comment: [address], [place] [address] Contact Information Discharge Discharge Address: [facility] [address], [place] [address] CPT Code CPT Code 05704 (1) Depression Active/Remission status: currently active Depression Type: major depressive disorder Major depression episode severity: severe Major depression recurrence: recurrent Psychotic features: without psychotic features Qualified Code(s): F33.2 - Major depressive disorder, recurrent severe without psychotic features
[2019-03-22 16:17] LABS: Albumin Level 3.8 gm/dl (3.4-5.0); Bilirubin Direct 0.1 mg/dl (0-0.2); Bilirubin,Total 0.4 mg/dl (0.2-1); Total Protein 7.3 gm/dl (6.4-8.2)
[2019-03-22] MEDS ORDERED: NALTREXONE HCL 50 MG TAB PO SCH (16:45)
[2019-03-22] MEDS: TRAZODONE HCL 50 MG TAB PO PRN (22:59)
[2019-03-23] MEDS: GABAPENTIN 600 MG TAB PO SCH (06:19)
[2019-03-23] MEDS: THIAMINE HCL 100 MG TAB PO SCH (08:46)
[2019-03-23] MEDS: SERTRALINE HCL 50 MG TABLET PO SCH (08:46)
[2019-03-23] MEDS: FOLIC ACID 1 MG TAB PO SCH (08:46)
[2019-03-23] MEDS ORDERED: BISOPROLOL 10 MG PO SCH (09:00)
[2019-03-23] MEDS ORDERED: BISOPROLOL FUMARATE PO SCH (09:00)
--- NOTE | 2019-03-23 09:51 | Discharge Summary ---
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 I'm thinking about taking a knife to my wrist." He was intoxicated with a blood alcohol level of 369, and was observed until clinically sober and able to participate in the assessment. He reported suicidal thoughts to slit his wrists. He said he struggled with depression since he was a teenager, and had been prescribed medications in the past by his PCP, Dr. Bobby Garcia, and is currently prescribed diazepam and trazodone as needed. He reported low mood, decreased appetite, poor sleep (3-4 hours at a time), social withdrawal, and monthly panic attacks with trembling, shortness of breath, chest pain, tearfulness, and dropping to the floor. He denied specific stressors, but stated that his job, life in general, and his depression were stressful. His was contacted and was in favor of inpatient treatment. He reported daily alcohol use, approximately 8 drinks daily, last on 03/19/2019 prior to presenting to the ER. He denied any history of withdrawal, but after being admitted to the unit, was hypertensive, tachycardic, and scored a 9 on the AWSS. He received Lorazepam 1 mg and was started on the gabapentin taper, and continued on his home antihypertensive. On my assessment, he was seen with Etelvina Ramsey, MS2, and Dandre Thacker, MS2. He reports he drinks heavily on a daily basis, and on Thursday night "got a thought in my head that I was going to take a knife and slash my wrist." He says the thoughts had been "building up" for about 8 hours, prior to drinking. He reports episodes of suicidal thoughts that have occurred multiple times throughout his life, sometimes are "fleeting" and sometimes more longstanding. He does not keep guns in his home because of this. He has had various plans in the past, and actually had a suicide attempt in college where he "drank a bunch of NyQuil," but didn't seek medical treatment. He denies acute stressors or triggers, but reports long standing depression treated with venlafaxine XR in 2005 and again in 2012, which was prescribed by his PCP. He states he would never take it again as "it was horrible coming off it." He had "brain zaps and felt like I was having a heart attack." Mood has been "pretty bad" for the past year and a half, doesn't think he ever recovered from his father dying 2 years ago. He states this "changed the dynamic of my family, my mother doesn't call me and it feels hurtful, and I don't talk to my sister." He is not sure why things changed after his father . Reports irritability, "I'm short with people," and chronic work stress. Mood has been worsening for the past 3 months, feels "overwhelmed with everything," unable to keep up with his obligations between work and family, and "no time to decompress." His drinking has increased over time, used to drink a 6 pack a night, and increased to 8-12 beers a night. Has been drinking daily for the past 3 years, and was able to abstain for a week in 07/2018 without withdrawal symptoms. He has tried to stop on his own, "I knew I was doing damage to myself." Admits drinking has caused problems (hangovers, difficulty functioning the next day, relationship problems w/ who wants him to get treatment). He says he disclosed it his PCP as well, and they were following his LFTs. He endorses anxiety with panic attacks weekly that occur without trigger, consist of tearfulness, heart racing, shaking, shallow breathing, and anxiety that last a maximum of 20 minutes, usually 3-0 minutes. States he hasn't found anything that helps him to get through them, although was taking Valium 1-2 times a week for panic or sleep. Reports excessive worry about "anything," feeling on edge, difficulty controlling the worry, with increased muscle tension/HAs and sleep interference. Reports episodes of elevated mood where "I can accomplish anything, nothing can go wrong," lasting a maximum of two days. He needs less sleep, has racing thoughts, risk taking behavior, or that others have noticed. These episodes occurred since high school, occur 3-4 times a year, and last 1-2 days at most. He reports being "germophobic" since HS, washes his hands excessively (estimates 60-70 times/day), which interferes with his ability to get day to day tasks done. He reports difficulty getting over the of his father, but denies PTSD symptoms. Physical Exam Psychiatric Orientation: alert, oriented x 3 and cooperative Apperance: appropriately dressed, appropriately groomed and appeared stated age Eye Contact: good eye contact Motor Behavior: steady gait and station and no abnormal motor movements Speech: normal rate/rhythm/volume of speech Affect: euthymic affect and mood congruent with affect "good." Thought Process: goal directed thought process Thought Content: reality based without delusions Suicidal Thoughts: denies suicidal thoughts Homicidal Thoughts: denies homicidal thoughts Hallucinations: no auditory hallucinations Cognition: recent memory grossly intact, attention grossly intact and language grossly intact Insight: good insight Judgement: good judgement Vital Signs (Past 24 Hours) Last Vital Signs Temp 36.5 C 03/23/19 06:57 Pulse 76 03/23/19 06:58 Resp 18 03/23/19 06:57 BP 127/90 03/23/19 06:58 Pulse Ox 96 03/20/19 18:37 Principal Diagnosis Major depressive disorder, recurrent, severe without psychosis Generalized anxiety disorder Rule out obsessive-compulsive disorder Alcohol use disorder Psychiatric Data Patient was hospitalized on our unit for 3 days. On admission, he was started on sertraline for anxiety and depression, and tolerated it well. He was on the AWSS protocol for alcohol withdrawal and completed a gabapentin taper. Naltrexone was added for urges to drink, and recommendations for substance abuse treatment were discussed. He ultimately agreed to referral for outpatient psychiatry and therapy, but declined formal substance abuse treatment and 12- step programs. He was active in treatment, attended and participated in groups and therapy, and worked on healthy coping skills and discharge safety plan. He had a family meeting with his on 03/22/2019, who was supportive. He consistently denied suicidal thoughts throughout his hospital stay. Day of Discharge Assessment Patient reports mood is improved, denies SI, and is making plans for the future. He has been referred to [facility] [place] for therapy and [facility] for psychiatric care. He had a meeting with his yesterday and feels it was helpful, she is very supportive. He discussed starting naltrexone yesterday and it is ordered for today, but has not yet gotten his first dose. We reviewed the results of his LFTs from yesterday and that AST and ALT are coming down but are still elevated, and should be monitoring moving forward. Again reviewed risks of alcohol use and his plan to maintain abstinence. He and his talked about how he will avoid alcohol, and she removed all the alcohol from the home (he told her where his beer and whiskey was). Discussed his normal evening routine, with starting drinking when he returns home, before gets home. He denies SI and feels he has a good safety plan in place, and has learned good coping skills. Transition of Care Transition Of Care Record: was reviewed with the patient Advance Directives Advance Directives Information Provided: Yes Advance Directives: No Mental Health Advance Directive: No Advance Directives on File: No Living Will: No Power of Justice Professor: No Advance Directives Reason:: Declines as Mental Health Visit. Risk Factors Assessment Risk factors were mitigated by admission to the inpatient unit, use of medic ations to target mood, anxiety, and cravings to drink, involvement in groups and therapy, working on healthy coping skills and a discharge safety plan, family meeting with his , and referring him for outpatient treatment. He is reporting improved mood, tolerating medications well, and stating willingness to follow up with out patient therapy and psychiatric care. His has removed alcohol from the home to decrease his risk of relapse, and benzodiazepine medications were discontinued due to addiction. He has been active in treatment, consistently denying suicidal thoughts, is reporting improved mood, and is able to review his safety plan. He is requesting discharge, and is he is no longer at acute risk of harm to himself, can be managed as an outpatient at this time. He does not have risk factors for harm to others. Male: Yes : Yes Do You Have Access To A Gun?: No Health Problems: Yes Mental Health Diagnoses: Yes Substance Use Disorders: Yes Previous Attempt: Yes Previous Attempt; Highly Lethal: No Family History of Suicide: Yes Previous Psychiatric Hospitalization: No Hopelessness: No Smoker: No Protective Factors Assessment : Yes Responsible for Young Children: Yes Employed: Yes ([employer]) Stable Relationships: Yes Supportive Family: Yes Good Rapport with Provider: Yes Tobacco Cessation at Discharge Tobacco Cessation Medication Prescribed at Discharge: Not Applicable/Non-Smoker Total Time Total Time Spent: Greater Than 30 Minutes Total Time Includes: Examination of the patient, Discharge Planning and Medication Reconciliation Discharge Data Lab Results 03/20/19 03/20/19 03/20/19 02:15 02:15 02:44 WBC 7.76 RBC 4.99 Hgb 16.1 Hct 46.0 MCV 92.2 MCH 32.3 MCHC 35.0 RDW Std Deviation 43.2 RDW Coeff of Alfonso 12.9 Plt Count 174 MPV 9.8 Immature Gran % (Auto) 0.3 Neut % (Auto) 42.0 Lymph % (Auto) 48.3 Wilkes % (Auto) 7.0 Eos % (Auto) 1.5 Baso % (Auto) 0.9 Immature Gran # (Auto) 0.02 Neut # (Auto) 3.26 Lymph # (Auto) 3.75 H Wilkes # (Auto) 0.54 Eos # (Auto) 0.12 Baso # (Auto) 0.07 Sodium Potassium Chloride Carbon Dioxide Anion Gap BUN Creatinine Est Cr Clr Drug Dosing Est GFR ( Amer) Est GFR (Non-Af Amer) BUN/Creatinine Ratio Glucose Calcium Total Bilirubin Direct Bilirubin AST ALT Alkaline Phosphatase Total Protein Albumin Globulin Albumin/Globulin Ratio Folate TSH Urine Color Yellow Urine Appearance Clear Urine pH 5.5 Ur Specific [place] 1.027 Urine Protein 2+ H Urine Glucose (UA) Negative Urine Ketones 2+ H Urine Blood Trace H Urine Nitrite Negative Urine Bilirubin Negative Urine Urobilinogen Negative Ur Leukocyte Esterase Negative Urine WBC (Auto) 0 Urine RBC (Auto) 0-4 U Hyaline Cast (Auto) 1-5 U Epithel Cells (Auto) 5-10 H Urine Bacteria (Auto) Negative Salicylates Urine Opiates Screen Neg Ur Methadone, Qual Neg Acetaminophen Urine Barbiturates Neg Ur Phencyclidine (PCP) Neg U Amphetamin/Meth Scrn Neg MDMA (Ecstasy) Screen Neg U Benzodiazepines Scrn Pos H Ur Cocaine Metabolite Neg U Marijuana (THC) Screen Neg Ethyl Alcohol mg/dL 03/20/19 03/20/19 03/20/19 02:44 02:44 02:44 WBC RBC Hgb Hct MCV MCH MCHC RDW Std Deviation RDW Coeff of Alfonso Plt Count MPV Immature Gran % (Auto) Neut % (Auto) Lymph % (Auto) Wilkes % (Auto) Eos % (Auto) Baso % (Auto) Immature Gran # (Auto) Neut # (Auto) Lymph # (Auto) Wilkes # (Auto) Eos # (Auto) Baso # (Auto) Sodium 143 Potassium 3.7 Chloride 106 Carbon Dioxide 21 Anion Gap 16.0 H BUN 17 Creatinine 1.13 Est Cr Clr Drug Dosing 84.3 Est GFR ( Amer) 91.8 Est GFR (Non-Af Amer) 79.2 BUN/Creatinine Ratio 15.2 Glucose 153 H Calcium 7.8 L Total Bilirubin 0.4 Direct Bilirubin AST 74 H ALT 124 H Alkaline Phosphatase 71 Total Protein 7.9 Albumin 3.9 Globulin 4.0 Albumin/Globulin Ratio 1.0 Folate TSH 0.453 Urine Color Urine Appearance Urine pH Ur Specific [place] Urine Protein Urine Glucose (UA) Urine Ketones Urine Blood Urine Nitrite Urine Bilirubin Urine Urobilinogen Ur Leukocyte Esterase Urine WBC (Auto) Urine RBC (Auto) U Hyaline Cast (Auto) U Epithel Cells (Auto) Urine Bacteria (Auto) Salicylates 1.8 L Urine Opiates Screen Ur Methadone, Qual Acetaminophen < 2 L Urine Barbiturates Ur Phencyclidine (PCP) U Amphetamin/Meth Scrn MDMA (Ecstasy) Screen U Benzodiazepines Scrn Ur Cocaine Metabolite U Marijuana (THC) Screen Ethyl Alcohol mg/dL 369.0 H 03/20/19 03/22/19 19:29 15:38 WBC RBC Hgb Hct MCV MCH MCHC RDW Std Deviation RDW Coeff of Alfonso Plt Count MPV Immature Gran % (Auto) Neut % (Auto) Lymph % (Auto) Wilkes % (Auto) Eos % (Auto) Baso % (Auto) Immature Gran # (Auto) Neut # (Auto) Lymph # (Auto) Wilkes # (Auto) Eos # (Auto) Baso # (Auto) Sodium Potassium Chloride Carbon Dioxide Anion Gap BUN Creatinine Est Cr Clr Drug Dosing Est GFR ( Amer) Est GFR (Non-Af Amer) BUN/Creatinine Ratio Glucose Calcium Total Bilirubin 0.4 Direct Bilirubin 0.1 AST 59 H ALT 101 H Alkaline Phosphatase 70 Total Protein 7.3 Albumin 3.8 Globulin Albumin/Globulin Ratio Folate 10.49 TSH Urine Color Urine Appearance Urine pH Ur Specific [place] Urine Protein Urine Glucose (UA) Urine Ketones Urine Blood Urine Nitrite Urine Bilirubin Urine Urobilinogen Ur Leukocyte Esterase Urine WBC (Auto) Urine RBC (Auto) U Hyaline Cast (Auto) U Epithel Cells (Auto) Urine Bacteria (Auto) Salicylates Urine Opiates Screen Ur Methadone, Qual Acetaminophen Urine Barbiturates Ur Phencyclidine (PCP) U Amphetamin/Meth Scrn MDMA (Ecstasy) Screen U Benzodiazepines Scrn Ur Cocaine Metabolite U Marijuana (THC) Screen Ethyl Alcohol mg/dL Hospital Course (1) Suicidal ideation: 03/21 -continue inpatient treatment, every 15 minute checks for safety. -Attend groups and therapy, work on healthy coping skills and discharge safety plan. -Family meeting with . (2) Depression: 03/21 -reviewed diagnoses and recommended treatment, including medications, therapy, and substance abuse treatment. -Patient reports 2 trials of venlafaxine XR in the past, and although it seemed effective the first time, did not work as well the second time. He does not wish to retrial it due to discontinuation symptoms when tapering off of it. Instead, discussed a trial of an SSRI, which he has never had before. Specifically reviewed sertraline, including risks, benefits, and side effects. He was provided with an up-to-date patient handout on the medication, and agreed to. Start 25 mg daily, titrate to effective dose. 03/22 -The patient reports that he has not experienced any noted side effects associated with sertraline 25 mg daily, and so the dose has been increased to sertraline 50 mg daily, beginning tomorrow.. -He reports that his mood has improved to "about a 6 out of 10." (3) Anxiety: 03/21 -symptoms of generalized anxiety disorder and OCD. Start SSRI trial as above, work on coping strategies, and refer for outpatient therapy and psychiatric care. 03/22 -Patient reports that he has not been feeling particularly anxious today. He notes that he has a mild essential tremor, and on observation he has a 6-12 beats per second fine tremor of both hands. He tells us that this is not new. (4) Alcohol abuse: 03/21 -continue gabapentin taper and lorazepam as needed AWSS protocol. -Discussed use of naltrexone for cravings and provided patient with an up-to-date patient handout. LFTs are currently elevated, so will postpone init iating medication until they have normalized. -Discussed different levels of treatment including inpatient rehab, IOP, and therapy with a substance abuse counselor. Continue to explore options and refer for treatment as indicated. -Brief intervention was offered and accepted Intervention was greater than 5 min in length. Brief interventions include: 1. Assess Readiness to Quit, 2. Advise: Help Patient to Reduce or Abstain from Alcohol, 3. Agree: Set Specific, Feasible Goals, 4. Assist: Anticipate barriers, Problem-Solving Solutions. Social work to 5. Arrange: Referrals to appropriate treatment. Summary of intervention: The patient is in contemplation stage with regards to transtheoretical model of change. The patient is advised to decrease alcohol consumption due to depressant effects and risk of interactions with prescription medications. The patient agreed to consider medication, except referral for outpatient treatment, with goal of abstinence. He will be provided with rec overy materials to continue to education self on how to cope with their condition without drinking. 03/22 -Today, I reviewed with the patient the fact that alcohol is a drug that can cause and worsen depression, and explained that treatment of depression is difficult if not impossible if the patient continues to use alcohol in substantial quantities. The patient indicated understanding. -We focused on the negative consequences associated with his use of alcohol. These, in his estimation, includes problems in his marriage, and worsening depression and anxiety. -The patient's blood pressure and pulse remained elevated this morning. Several hours later, I checked his pulse manually and his pulse, in my office, was 64. Nursing rechecked his blood pressure and pulse were rechecked by robyn carlos and his pulse was 80, with his blood pressure being 156/95. -He acknowledges that he continues to want to drink, but denies cravings. -We discussed the possibility of adding naltrexone to the patient's medication regimen. We will repeat his liver function studies this afternoon and will consider adding naltrexone depending upon the results. -I spoke with the patient about the possibility of disulfiram as an incentive to not drink, and was concerned with the patient said that he definitely does not want something that might make him sick if he consumes alcohol. When confronted about this, in the face of his reported decision to achieve and maintain sobriety, he mentioned that he might "accidentally" eat a dessert that contains alcohol and have a reaction. When I explained that that would be unlikely provided he uses reasonable caution in making food choices by avoiding uncooked alcohol, he still indicated that he would be reluctant to use it. Accordingly, I am concerned about whether his expressed intent to stop drinking is back to him by a genuine desire. Mental Health & Subst Abuse Tx Psychiatrist Name of Psychiatrist: Leandra Alberto Psychiatrist's Date of Appointment with Psychiatrist: 03/30/19 Time of Appointment with Psychiatrist: 9:00 a.m. [id number] Name of Therapist: Chana Debbi Mary LCSW Therapist's Date of Therapist Appointment: 03/25/19 Time of Therapist Appointment: 12:00 p.m. Therapy Appointment Comment: [address] [facility] Contracts Intern Name of Contracts Intern: Denies Post Discharge Appointments Primary Care Physician Name Of Family Doctor: [facility] - Dr. Garcia Primary Care Time of Appointment with PCP: Please follow up as needed Provider Appointment Comment: [address], [place] [id number] Smoking Cessation Counseling Tobacco Cessation Medication Prescribed at Discharge: Not Applicable/Non-Smoker Contact Information Discharge Discharge Address: [facility] [address], [place] [address] Discharge Plan Discharge Items Reason For Visit: MDD Follow-up/Referrals: Bobby Garcia M.D. [Primary Care Provider] - Medications and DC Order Prescriptions: New naltrexone 50 mg Tablet 50 mg PO DAILYBD Qty: 30 RF: 0 sertraline 50 mg Tablet 50 mg PO QAM Qty: 30 RF: 0 Continued trazodone 50 mg tablet 50 mg PO HS PRN (Reason: Sleep) RF: 0 bisoprolol fumarate 5 mg tablet 5 mg PO DAILY RF: 0 Discontinued diazepam 5 mg tablet 5 mg PO HS PRN (Reason: Anxiety) RF: 0 Admission Data Admit Date/Time: 03/20/19 18:11 Attending Provider: Dulce Eduardo Admit Provider: Gennaro Olguin I Primary Care Provider: Bobby Garcia Other Interventions: PSY Interdisciplinary Discharge Planning Last Done: 03/23/19 09:32
[2019-03-23 12:48] LABS: 7-Aminoclonaz, Confirm NEGATIVE NG/ML (CUTOFF=25); Hydro-Alp Ur, GC/MS NEGATIVE NG/ML (CUTOFF=25); Hydroxyethylflurazepam, Conf NEGATIVE NG/ML (CUTOFF=50); Hydroxytriazolam NEGATIVE NG/ML (CUTOFF=50); Lorazepam, Ur GC/MS NEGATIVE NG/ML (CUTOFF=50); Nordiazepam, Confirm 209 NG/ML (CUTOFF=50); Oxazepam Ur, GC/MS 254 NG/ML (CUTOFF=50); Temazepam, Confirm 1590 NG/ML (CUTOFF=50)
[2019-03-23] MEDS ORDERED: NALTREXONE HCL 50 MG TAB PO SCH (17:15)
[2019-03-24] MEDS ORDERED: GABAPENTIN 600 MG TAB PO SCH (06:45)
== END 2019-03-23 12:01 | disposition home or self-care (01) | DRG 885 ==
LOC: ED 02:03 → 3S 18:11